=== PATIENT | female | born 1945 | race African-American/Black ===

== ENCOUNTER → 2017-04-30 | Outpatient (CLI) | payer OTHER ==
[~2017-04-30] MED LIST: AMOXICILLIN500 M1 PO
== END ==
LOC: RAD 13:09
DX: R76.11 Nonspecific reaction to tuberculin skin test without active tuberculosis (principal); J84.10 Pulmonary fibrosis, unspecified; M47.894 Other spondylosis, thoracic region

== ENCOUNTER 2017-06-11 02:21 | Emergency (ER) | payer OTHER ==
[~2017-06-11] VITALS: Ht 152.4 cm; Wt 77.1 kg
--- NOTE | ~2017-06-11 | EKG ---
[address] [address] ELECTROCARDIOGRAM REPORT Name: VALERIANO WALKER Rafa Room #: [facility]#: [id number] Admission: 06/11/17 Attend Phys: Discharge: 06/11/17 Date of : 47 Report #: [id number] THIS REPORT FOR: //name// [facility] ED Test Date: 2017-06-11 Test Time: 03:27:41 Pat Name: VALERIANO WALKER Department: Room: Gender: F Angledozer Operator: MIKIE BRYANT : 1945 Requested By: Andrew Ng Order Number: [id number] MD: Doug Wooten Measurements Intervals [place] Rate: 96 P: 72 MO: 156 QRS: 34 QRSD: 84 T: 34 QT: 365 QTc: 462 Interpretive Statements Sinus rhythm No significant abnormality No previous ECG available for comparison Electronically Signed On 06-11-2017 8:17:16 [employer]CT [employer] by Doug Wooten [email or web address] <ELECTRONICALLY SIGNED> By: Doug Wooten MD, [facility] 06/11/17 0817 [id number] 032 Doug Wooten MD, FACC /EPI
[2017-06-11 03:25] LABS: HEMATOCRIT 36.2 % (37.0-47.0); MCH 26.3 pg (26.0-34.0); MCHC 33.1 g/dL (28.0-37.0); MCV 79.5 fL (80.0-100.0); RBC 4.55 mil/uL (4.20-5.00); RDW 13.6 % (10.5-14.5); WBC 11.8 thou/uL (4.0-11.0)
[2017-06-11 03:36] LABS: ANION GAP 11 mmol/L (7-16); BUN 16 mg/dL (7-18); CALCIUM 9.2 mg/dL (8.5-10.1); CHLORIDE 101 mmol/L (98-107); CO2 27 mmol/L (21-32); CREATININE 1.2 mg/dL (0.6-1.0); GLUCOSE 154 mg/dL (74-106); POTASSIUM 3.4 mmol/L (3.5-5.1); SODIUM 139 mmol/L (136-145)
[2017-06-11 03:45] LABS: ALBUMIN 3.2 g/dL (3.4-5.0); SGOT 23 U/L (15-37); SGPT 26 U/L (30-65); TOTAL BILIRUBIN 0.5 mg/dL (<0.1-1.0); TOTAL PROTEIN 7.1 g/dL (6.4-8.2); TROPONIN-I < 0.04 ng/mL (<0.06)
[2017-06-11 04:10] LABS: URINE BILIRUBIN NEGATIVE (Negative); URINE BLOOD NEGATIVE (Negative); URINE CLARITY CLEAR; URINE COLOR YELLOW; URINE GLUCOSE-RANDOM* NEGATIVE (Negative); URINE KETONES NEGATIVE (Negative); URINE LEUKOCYTES-REFLEX NEGATIVE (Negative); URINE NITRITE-REFLEX NEGATIVE (Negative); URINE PROTEIN (DIPSTICK) NEGATIVE (Negative); URINE UROBILINOGEN 0.2 E.U./dl (0.2-1.0)
[2017-06-11] MEDS ORDERED: AMOXICILLIN500 M1 PO (05:09)
== END 2017-06-11 05:38 | disposition home or self-care (01) ==
LOC: ER 02:21
PROVIDERS: Emergency Medicine
DX: M79.1 Myalgia (principal); J02.0 Streptococcal pharyngitis; Z88.6 Allergy status to analgesic agent

== ENCOUNTER → 2017-07-15 | Outpatient (CLI) | payer OTHER ==
--- NOTE | ~2017-07-15 | PFR/MVV ---
[facility] [place] [address] PULMONARY FUNCTION MVV/REPORT Name: VALERIANO WALKER V Room #: [facility]#: [id number] Admission: 07/15/17 Attend Phys: Physician not on staff Discharge: Date of : 47 Report #: [id number] THIS REPORT FOR: //name// >> SPIROMETRY: (BTPS) Height: 60 in cm Weight: 173 lbs kg Exam Date: 07/15/17 PRE-RX POST-RX PRED BEST %PRED BEST %PRED %CHG FVC LITERS . 2.37 . 1.88 . 79 . 1.94 . 82 . 3 FEV1 LITERS . 1.90 . 1.46 . 77 . 1.57 . 83 . 7 FEV1/FVC % . 83 . 78 . 94 . 81 . 98 . 4 QRF77-21% L/Sec . 1.99 . 1.31 . 66 . 1.78 . 89 . 35 PEF L/SEC . 4.98 . 4.65 . 93 . 4.56 . 92 . -2 FEF50/FIF50 UNITLESS . <1.00 . 0.45 . . 0.67 . . 50 MVV L/Min . 84 . 60 . 71 f 1/Min . . 150 . >> LUNG VOLUMES: (BTPS) PRE-RX POST-RX PRED AVG %PRED AVG %PRED %CHG VC Liters . 2.37 . 2.08 . 88 . . . TLC Liters . 4.01 . 3.79 . 95 . . . RV Liters . 1.61 . 1.71 . 106 . . . RV/TLC % . 40 . 45 . 112 . . . FRC [address] Liters . 2.03 . 2.17 . 107 . . . FRC N2 Liters . 2.03 . . . . . ERV Liters . . 0.46 . . . . IC Liters . . 1.36 . . . . >> DIFFUSION: DLCO ml/Min/mmHg . 19.5 . 10.9 . 56 . . . DL Cony ml/Min/mmHg . 19.5 . 10.9 . 56 . . . DLCO/VA ml/Min/mmHg . 3.60 . 1.01 . 111 . . . VA Liters . . 2.73 . . . . COMMENTS: COMMENTS: >> RESISTANCE: [facility] [address] [place] [address] PULMONARY FUNCTION MVV/REPORT Name: ROSSY WALKERLUIS MIGUEL Rafa Room #: [facility]#: [id number] Admission: 07/15/17 Attend Phys: Physician not on staff Discharge: Date of : 47 Report #: [id number] PRE-RX PRED AVG %PRED Raw Total cmH20/L/Sec . . 7.41 . Raw Insp cmH20/L/Sec . . 11.88 . Raw Exp cmH20/L/Sec . . 13.41 . Raw cmH20/L/Sec . 1.96 . 2.42 . 123 Gaw L/Sec/cmH20 . 0.486 . 0.414 . 85 sRaw cmH20 Sec . 3.98 . 6.13 . 154 sGaw l/cmH20 Sec . 0.251 . 0.163 . 65 Vtq Liters . . 2.54 . # = OUTSIDE 95% CONFIDENCE INTERVAL CALIBRATION: PRED: 3.00 ACTUAL: EXP 3.01 INSP 3.02 [id number] >> INTERPRETATION/IMPRESSION: CC: SURI Moseley Physician staff PULMONARY FUNCTION STUDY Spirometry reveals low FVC. There is improvement in TQM73-84% post-bronchodilator. Total lung capacity is within normal limits. Residual volume is within normal limits. Diffusion capacity 56%; however, normalizes with alveolar volume. IMPRESSION: There is improvement in SGS42-38% post-bronchodilator with normal residual volume and total lung capacity. There is, however, a moderate diffusion defect which normalizes. Clinical and radiographic correlation is recommended. <ELECTRONICALLY SIGNED> By: Priya Rodríguez MD 07/30/17 1046 Priya Rodríguez MD /nt
== END ==
LOC: PUL 08:39
DX: J63.2 Berylliosis (principal)

== ENCOUNTER → 2020-08-31 | Outpatient (CLI) | payer OTHER ==
[2020-08-31 10:15] LABS: CREATININE 1.1 mg/dL (0.6-1.0)
== END ==
LOC: MRI 09:20
PROVIDERS: ATTEND Psychiatry & Neurology Neuromuscular Medicine
DX: I67.82 Cerebral ischemia (principal)